=== PATIENT | female | born 1985 | race Caucasian/White ===

== ENCOUNTER → 2017-03-25 | Outpatient (CLI) | payer OTHER ==
[~2017-03-25] MED LIST: ETHINYL ESTRADIOL PO; NORE5TAB PO
[2017-03-25 14:00] LABS: ASPARTATE AMINO TRANSFERASE 19 U/L (15-37); BLOOD UREA NITROGEN 7 mg/dL (7-18)
[2017-03-25 14:18] LABS: PATH.CAST-FLAG NOT PRESENT; SPERM-FLAG NOT PRESENT; SRC-FLAG NOT PRESENT; XTAL-FLAG NOT PRESENT; YLC-FLAG NOT PRESENT
== END | disposition home or self-care (01) ==
LOC: STAR 12:42
PROVIDERS: ATTEND Orthopaedic Surgery Orthopaedic Surgery of the Spine
DX: Z01.818 Encounter for other preprocedural examination (principal); M41.85 Other forms of scoliosis, thoracolumbar region; R79.1 Abnormal coagulation profile
CPT/HCPCS: 36415; 71020; 80053; 81001; 85025; 85610; 85651; 85730; 93005

== ENCOUNTER → 2017-09-07 | Outpatient (CLI) | payer OTHER ==
[~2017-09-07] MED LIST changes: +CEPH-368 PO; +DIAZ5TAB PO; +IBUP-1223 PO; +NORE-74 PO; +OXYC10TA6 PO; +RIVA10TA PO
== END ==
LOC: STAR 09:27
PROVIDERS: ATTEND Obstetrics & Gynecology Female Pelvic Medicine and Reconstructive Surgery
DX: Z02.9 Encounter for administrative examinations, unspecified (principal)

== ENCOUNTER 2017-09-14 12:03 | Day surgery (SDC) | payer OTHER ==
[~2017-09-14] VITALS: Ht 157.5 cm; Wt 46.5 kg
[~2017-09-14 12:03] MED LIST changes: +BUPIVACAINE/PF 0.25% ONE; +EPINEPHRINE 1 MG/ML, 1ML ONE; +METHYLERGONOVINE 0.2 MG/ML IM ONE; +MISOPROSTOL 200 MCG TABLET ONE; +OXYTOCIN 10 UNITS/ML, 1ML ONE; +SILVER NITRATE STICK TP ONE
[2017-09-14] MEDS ORDERED: LACTATED RINGERS 1,000 ML IV SCH (12:37)
[2017-09-14 12:53] VITALS: BP 123/83
[2017-09-14 13:14] LABS: HCG UR LOT HCG7030192
[2017-09-14 13:23] LABS: HCG UR OBC PASS
[2017-09-14] MEDS ORDERED: MIDAZOLAM 1 MG/ML, 2ML ONE (13:53)
[2017-09-14] MEDS ORDERED: FENTANYL PF 100 MCG/2ML ONE ×3 (13:53→16:20)
[2017-09-14] MEDS ORDERED: PROPOFOL 10 MG/ML, 20ML ONE ×2 (13:54→14:49)
[2017-09-14] MEDS ORDERED: CEFAZOLIN 1,000 MG ONE ×2 (13:54)
[2017-09-14] MEDS ORDERED: LIDOCAINE-MPF 2% ,5ML ONE (13:54)
[2017-09-14] MEDS ORDERED: FENTANYL PF 100 MCG/2ML IV PRN (14:30)
[2017-09-14] MEDS ORDERED: ONDANSETRON 2MG/ML, 2ML IVPush PRN (14:30)
[2017-09-14] MEDS ORDERED: OXYcodone 5 MG/5 ML ORAL.SOL UDC PO PRN (14:30)
[2017-09-14] MEDS ORDERED: ACETAMINOPHEN 325 MG TABLET PO PRN (14:30)
[2017-09-14] MEDS ORDERED: LABETALOL 5MG/ML, 20ML IV PRN (14:30)
[2017-09-14] MEDS ORDERED: HYDROmorphone 1 MG/ML, 1ML IV PRN (14:30)
[2017-09-14] MEDS ORDERED: MEPERIDINE/PF 25MG/0.5ML IVPush PRN (14:30)
[2017-09-14] MEDS ORDERED: hydrALAzine 20 MG/ML, 1ML IV PRN (14:30)
[2017-09-14] MEDS ORDERED: PROMETHAZINE 25 MG/ML, 1ML IV PRN (14:30)
[2017-09-14] MEDS ORDERED: LORazepam 2 MG/ML, 1ML IVPush PRN (14:30)
[2017-09-14] MEDS ORDERED: ROCURONIUM 10MG/ML,5ML ONE (14:49)
[2017-09-14] MEDS ORDERED: KETAMINE 10 MG/ML, 20ML ONE (14:49)
[2017-09-14] MEDS ORDERED: MIDAZOLAM 1 MG/ML, 5ML ONE (14:49)
[2017-09-14] MEDS ORDERED: HYDROmorphone 2 MG/ML, 1ML ONE (14:57)
[2017-09-14] MEDS ORDERED: DEXAMETHASONE 4 MG/ML, 1ML ONE ×2 (14:57)
[2017-09-14] MEDS ORDERED: ONDANSETRON 2MG/ML, 2ML ONE ×2 (15:09)
[2017-09-14] MEDS ORDERED: KETOROLAC 30 MG/1 ML ONE (15:09)
[2017-09-14] MEDS ORDERED: NEOSTIGMINE 1 MG/ML, 10ML ONE (15:20)
[2017-09-14] MEDS ORDERED: GLYCOPYRROLATE 0.2MG/1ML, 5ML ONE ×2 (15:20)
[2017-09-14] MEDS ORDERED: MEPERIDINE/PF 25MG/0.5ML ONE (15:49)
[2017-09-14] MEDS ORDERED: OXYcodone 5 MG/5 ML ORAL.SOL UDC ONE (15:49)
[2017-09-14] MEDS ORDERED: ACETAMINOPHEN 325 MG TABLET ONE (15:49)
== END 2017-09-14 19:25 | disposition home or self-care (01) ==
LOC: OUT 12:03
PROVIDERS: ATTEND Obstetrics & Gynecology Female Pelvic Medicine and Reconstructive Surgery
DX: N94.6 Dysmenorrhea, unspecified (principal); N94.10 Unspecified dyspareunia; N93.9 Abnormal uterine and vaginal bleeding, unspecified; D64.9 Anemia, unspecified; Z98.890 Other specified postprocedural states
CPT/HCPCS: 58558; 58660; 81025; 88305; J0171; J0690; J1100; J1170; J1885; J2175; J2250; J2405; J2704; J2710; J3010; J3490; J2210; J2590